=== PATIENT | male | born 1940 | race Caucasian/White ===

== ENCOUNTER 2017-05-02 05:45 | Emergency (ER) | payer MEDICARE, OTHER ==
[2017-05-02 06:12] VITALS: BP 166/95
[2017-05-02] MEDS: oxyCODONE/ACETAMINOPHEN 5/325 TABLET PO ONE (06:20)
[2017-05-02] MEDS: AMOXICILLIN 500 MG CAPSULE PO ONE (06:20)
--- NOTE | 2017-05-02 06:30 | ED Physician Documentation ---
Sore Throat/Dental Pain - HISTORIAN Historian: patient - HPI Stated Complaint: Lt back,lower, dental pain and swelling Chief Complaint: Dental Pain Additional Information: x 3-4 days Onset: days ago (4) Context: Fractured Tooth, Abscess, Dental Caries Associated Symptoms: L ear pain Worsened By: nothing Relieved By: nothing Further Comments: no - ROS CONST: no problems CVS/RESP: none GI/: denies: problems urinating, nausea, vomiting MS/SKIN/LYMPH: denies: muscle aches, rash, leg swelling NEURO/PSYCH: none - PAST HX Past History: other (laryngeal ca) Other History: none Immunizations: referred to PCP Allergies/Adverse Reactions: Allergies Allergy/AdvReac Type Severity Reaction Status Date / Time No Known Allergies Allergy Verified 05/02/17 06:05 Home Medications: Ambulatory Orders Medication Instructions Recorded NK [NK] 05/02/17 - SOCIAL HX Smoking History: non-smoker, quit greater than 1 year Alcohol Use: none Drug Use: none - FAMILY HX Family History: Yes - VITAL SIGNS Vital Signs: Vital Signs Temp Pulse Resp BP Pulse Ox 97.9 F 89 16 166/95 94 05/02/17 05:45 05/02/17 05:45 05/02/17 05:45 05/02/17 05:45 05/02/17 05:45 - REVIEWED ASSESSMENTS Nursing Assessment Reviewed: Yes Vitals Reviewed: Yes Progress - Results/Orders Results/Orders: no testing ordered - Progress Progress: pt. given 1 percocet 5/325 mg and amoxicillin 500 mg p.o. in er Critical Care Note - Critical Care Note Total Time (mins): 0 ED Results Lab/Radiology - Lab Results Lab Results: none ordered - Radiology Radiology Impressions: none ordered - Orders Orders: ED Orders Category Date Time Status Amoxicillin [Amoxil] Med 05/02/17 06:13 Once 500 mg PO NOW ONE oxyCODONE HCL/ACETAMINOPHEN [Percocet 5-325 mg Tablet] Med 05/02/17 06:13 Once 1 each PO NOW ONE Dental Pain Physical Exam - EXAM General Appearance: alert, moderate distress Head/Neck: head nml inspection, trachea midline, no lymphadenopathy, thyroid nml , other (old tracheostomy site) Eyes: eyes nml inspection, PERRL Mouth/Throat: lips nml, gums nml, pharynx nml, dental tenderness (left lower jaw , premolar and 1st molar), gum swelling around teeth Ear/Nose: nml inspection, TM erythema Respiratory: no resp. distress, breath sounds nml. No: respiratory distress CVS: reg. rate & rhythm, heart sounds nml Abdomen: soft, no organomegaly, normal bowel sounds, no abdominal bruit, no distension, non-tender Extremities: non-tender, nml ROM Skin: warm/dry, normal color Neuro/Psych: No: weakness, numbness, anxiety, depression Discharge Clincal Impression: Pain, dental Referrals: Yazmin Pepper MD [Primary Care Provider] - 2 Days Home Medications: Ambulatory Orders NK [NK] 05/02/17 Comments: discharged with scripts for amoxicilin 500 mg #30 1 p.o. tid, meloxicam 7.5 mg # 20 1 p.o. bid, tizanidine 4 mg #20 1 pill 4x/day as needed for pain and 2 % viscous lidocaine # 1 bottle soak onto cotton ball and apply to affected tooth every 1/2 hour as needed for pain. Condition: Stable Disposition: 01 HOME, SELF-CARE Decision to Admit: NO Decision Time: 06:20
[2017-05-02] MEDS: ONDANSETRON HCL/PF 4 MG/ 2ML VIAL IM ONE (07:21)
[2017-05-02] MEDS: HALOPERIDOL LACTATE 5 MG/ML VIAL IM ONE (07:21)
== END 2017-05-02 06:20 | disposition home or self-care (01) ==
LOC: ED 05:45
DX: K08.89 Other specified disorders of teeth and supporting structures (principal)
CPT/HCPCS: 99283; A9270-GY